=== PATIENT | male | born 1960 | race Caucasian/White ===

== ENCOUNTER 2025-03-13 13:28 | Outpatient (CLI) | payer BC, MEDICARE, SELFPAY ==
--- NOTE | ~2025-03-13 | MR_ITS ---
EXAMINATION: MR pelvis wo/w con DATE: 03/13/2025 14:29 INDICATION: Unilateral inguinal hernia TECHNIQUE: Magnetic resonance imaging (MRI) of the pelvis was performed without and with 18 mL Multihance intravenous contrast. Fullfield sequences of the pelvis included axial and coronal T2-weighted SS FSE, coronal T2-weighted SS FS FSE, coronal 2D FIESTA, axial T1-weighted FSPGR, axial dual-echo T1-weighted FSPGR and axial T1 weighted LAVA. Postcontrast sequences included a time course axial T1-weighted LAVA with full-field of view of the pelvis. COMPARISON: None. FINDINGS: Mild mucosal trabeculation of the bladder wall likely related to chronic outlet obstruction from the mildly enlarged prostate which measures 4.1 x 3.6 cm. Visualized portions of bowels are unremarkable. Very small fat-containing umbilical hernia. There is focal scarring slightly inferolateral to the um bilicus likely related to prior surgery. No free fluid in the pelvis. Moderate- sized right and large left fat-containing bilateral inguinal hernias. Small bilateral hydroceles. No pathologically enlarged pelvic or inguinal lymphadenopathy. Mild lumbar spondylosis. Normal bone marrow signal throughout. IMPRESSION: 1. Moderate-sized right and large left fat-containing inguinal hernias. 2. Small bilateral hydroceles. 3. Mild prostatomegaly with trabeculation of the mucosal surface of the bladder which could be due to secondary chronic outlet obstruction. Reviewed, dictated and finalized at location A.
== END 2025-03-13 13:29 | disposition home or self-care (01) ==
PROVIDERS: PCP Physician Assistant; Visit Provider Physician Assistant
DX: K40.90 Unilateral inguinal hernia, without obstruction or gangrene, not specified as recurrent (principal); N43.3 Hydrocele, unspecified; N40.0 Benign prostatic hyperplasia without lower urinary tract symptoms; N32.89 Other specified disorders of bladder
CPT/HCPCS: 72197; A9577

== ENCOUNTER 2025-05-27 07:47 | Outpatient (CLI) | payer BC, MEDICARE, SELFPAY ==
--- NOTE | 2025-05-27 08:00 | ECG_ITS ---
Test Date: 2025-05-27 08:05:35 Measurements Intervals [place] Rate: 78 P: 56 NM: 202 QRS: 30 QRSD: 108 T: 56 QT: 359 QTc: 409 Interpretive Statements SINUS RHYTHM BORDERLINE AV CONDUCTION DELAY INCOMPLETE RIGHT BUNDLE BRANCH BLOCK BASELINE ARTIFACT- I, II, III, AVR, AVL, AVF, V2 BORDERLINE ECG No previous ECG available for comparison Electronically Signed On 05-27-2025 08:10:59 BIKE MECHANIC by Freddy Wilson D.O.
[2025-05-27 08:32] LABS: Anion Gap 9 mmol/L (4-12); Blood Urea Nitrogen 17 mg/dL (9-20); Calcium 9.6 mg/dL (8.4-10.2); Carbon Dioxide 23 mmol/L (22-30); Chloride 101 mmol/L (98-107); Estimated Glomerular Filt Rate > 60; Glucose 165 mg/dL (65-110); Potassium 4.0 mmol/L (3.4-5.0); Sodium 133 mmol/L (137-145)
== END 2025-05-27 07:48 | disposition home or self-care (01) ==
LOC: ANHSURGERY 07:53
PROVIDERS: Anesthesiology; PCP Physician Assistant; Visit Provider Surgery
DX: Z01.818 Encounter for other preprocedural examination (principal); E11.9 Type 2 diabetes mellitus without complications; I10 Essential (primary) hypertension; K40.20 Bilateral inguinal hernia, without obstruction or gangrene, not specified as recurrent; I45.10 Unspecified right bundle-branch block
CPT/HCPCS: 36415; 80048; 86850; 86900; 86901; 93005

== ENCOUNTER 2025-05-30 02:15 | Day surgery (SDC) | payer BC, MEDICARE, SELFPAY ==
--- NOTE | 2025-05-23 13:40 | PC.NURSE ---
[facility] has started construction of its new state of the art ER which will open Spring 2026. With this, we anticipate parking may be a challenge for some our surgical patients and families. Parking spaces are limited but are available for all Surgical, obstetrics, and ER patients sharing this lot. If you arrive and find you are having a hard time finding a parking space, please note that we understand the challenges, please drive around the hospital and park near Hospital Entrance 1. When you enter this entrance, you can ask a volunteer to direct or take you back to the surgical waiting area to check in. We appreciate everyone?s understanding of these expected challenges while we build for your future. Report to the Outpatient Waiting Room, entrance under the green pavilion located off [address], at time _6 AM on date _05/30/25 . Planned Procedure Time: ____7:30 AM____.? Time changes happen often and if your time is changed the preop area will call you the afternoon before. - You and your visitor will be asked to self-screen and do not enter if you have any COVID symptoms. Please call surgeon if you need to reschedule. - A mask is optional within the hospital at this time. Patients may have clear liquids (water, carbonated beverages, clear teas, apple juice) until 3 hours prior to surgery( 4:30 AM) with a maximum of 20 ounces. - No food from midnight until time of surgery and no smoking, or chewing tobacco (or any form of nicotine). No chewing gum, candy or mints. Take only the following medications with a SIP of water on the morning of surgery: ___NONE DO NOT STOP ANY OF YOUR OTHER PRESCRIPTION MEDICATIONS PRIOR TO SURGERY EXCEPT THE FOLLOWING Hold all vitamins and supplements for 3 days per anesthesiologist. Medications to discontinue per physician NONE ____ Please no make-up, nail italian, hairspray, perfume, deodorant, or body powder the day of surgery.? No jewelry (including any body piercings) or valuables the day of surgery, leave them at home.? Please take a shower or bath the night before, or the morning of, surgery with an antibacterial soap.? Wear comfortable, loose fitting clothing.? Children are encouraged to wear pajamas. - Jewelry must be removed prior to entering the operating room.? Rings and piercings that are not removed may be cut off. - The hospital will not accept responsibility for valuables.? - Please leave all valuables, including medications, at home the day of surgery. If you are going home after surgery, a licensed truck driver salesperson must drive you home.? - NO public transportation without another adult if you receive anesthesia. - We recommend that an adult stay with you for 24 hours following discharge. - We also recommend that you do not drive, make important decision, drink alcoholic beverages, or take any drugs that were not prescribed by your health care provider for at least 24 hours after your discharge time. For Pediatric surgeries, we recommend two adults accompany the child home. Follow any additional instructions given to you from your surgeon. Telephone instructions given to __PATIENT AND SAFIA and asked if any additional questions and then verbalized understanding. Patient advised to call surgeon office or pre surgery nurse liaison [phone] if any additional questions.
[2025-05-23 14:00] VITALS: BMI 28.8
[2025-05-30] VITALS (10 sets, daily range): BP systolic 129–161; BP diastolic 62–88; PULSE 75–92; RESP 14–22; TEMP 36.6–36.7; O2SAT 93–100; BMI 30.4
[2025-05-30] MEDS: KETOROLAC 15 MG/ML VIAL (*BKC) IV PUSH ×2 (06:45→11:01)
[2025-05-30] MEDS: LACTATED RINGERS 1,000 ML 30 ML IV CONT ×3 (06:45→11:50)
[2025-05-30] MEDS: ACETAMINOPHEN 500 MG TABLET 1000 MG PO (06:45)
--- NOTE | 2025-05-30 07:13 | PM.IMHP2 ---
H&P: HPI History of Present Illness Date/Time: 05/30/25 07:13 Chief Complaint: Bilateral inguinal hernia Narrative: Mr. Kapoor presents to the office at the request of Dai Lobato PA-C for evaluation of groin pain. Patient had a Pelvis MRI which showed moderate-sized right and large left fat-containing inguinal hernias, small bilateral hydroceles, and mild prostatomegaly with trabeculation of the mucosal surface of the bladder which could be due to secondary chronic outlet obstruction. Patient reports noticing groin pain approximately 6 weeks ago. Patient states he is experiencing pain above left testicle that radiates into groin. Patient denies experiencing problems with voiding. Patient states he is experiencing constipation, but denies nausea and vomiting. Review of Systems Review of Systems: The remainder of the review of systems to include constitutional, HEENT, cardiovascular, respiratory, GI, , integumentary, musculoskeletal, endocrine, immunologic, hematologic, psychiatric, and neurologic are all negative except for which is mentioned above in the HPI. [facility] Past Medical History Medical History Hx of fracture of arm History of hypertension History of gastroesophageal reflux (GERD) Hx of diabetes insipidus Surgical History Surgical History Hx of knee surgery Hx of appendectomy Family History Family History Mother Diabetes mellitus Hypertension Heart disease Cancer Father Cancer Hypertension Sibling Cancer Heart disease Hypertension Grandparent Diabetes mellitus Hypertension Cancer Heart disease Social History Social History Years smoked: 10 Smoking status: Former smoker Tobacco type: cigarettes Additional smoking assessment comments: SMOKES -ONE PACK WILL LAST A WK Living arrangements: with family Spiritual care concerns: No Meds Home Medications and Allergies Home Medications ?Medication ?Instructions ?Recorded ?Confirmed ?Type atorvastatin 20 mg tablet (Lipitor) 20 mg PO DAILY 03/27/25 05/30/25 History glimepiride 1 mg tablet 1 mg PO QAM 03/27/25 05/30/25 History hydrochlorothiazide 25 mg tablet 25 mg PO DAILY 03/27/25 05/30/25 History lisinopril 30 mg tablet 30 mg PO DAILY 03/27/25 05/30/25 History metformin 1,000 mg tablet 1,000 mg PO BID 03/27/25 05/30/25 History omeprazole 20 mg capsule,delayed 20 mg PO DAILY 03/27/25 05/30/25 History release Allergies Allergy/AdvReac Type Severity Reaction Status Date / Time No Known Allergies Allergy Verified 05/30/25 07:11 Exam Const: General: comfortable and no acute distress HENMT: Ears: TM's normal bilaterally Face/Nose/Sinus: Normal nares present Mouth: Yes moist mucous membranes Eyes: General: appearance normal, both eyes and all related structures Sclera: sclerae normal Pupils: Equal, round and reactive pupils present EOM: EOMs intact bilaterally Neck: Neck: no JVD Resp: Effort & Inspection: normal respiratory effort Auscultation: clear to auscultation bilaterally Cardio: Rate: regular rate Rhythm: regular rhythm GI: Other: No ventral hernia. Larger RLQ scar form childhood appendectomy. : Other: Reducible bilateral inguinal hernia. Left larger than right non tender to palpation. No testicular masses. Skin: General skin exam: normal color and no rashes or lesions noted Neuro: General: gait normal Speech: normal speech Motor exam (neuro): 5/5 motor strength present throughout Sensory Exam: normal sensation Extrem: General: normal to inspection Psych: Mental Status: mental status grossly normal Affect: normal affect Assessment and Plan Assessment and plan (1) Bilateral inguinal hernia (BIH): Code(s): K40.20 - Bilateral inguinal hernia, without obstruction or gangrene, not specified as recurrent Status: Acute Assessment and Plan: I have reviewed office notes from Dai Lobato PA-C and imaging prior to patient being seen in office. I have recommended a laparoscopic bilateral inguinal hernia repair with mesh, Da Kaitlyn assisted, to be done under general anesthesia as an outpatient. Patient would like to proceed with surgery before the end of the year. The procedure was discussed in detail including the use of mesh, general description, and usual course of recovery. Risks of recurrence, infection, postop bleeding, prolonged postop pain, possible need to return to surgery were discussed as well. All questions were answered. Patient would like to proceed. Follow-up 2 weeks postoperatively.
--- NOTE | 2025-05-30 07:17 | WPDHPUPDATE1 ---
History and Physical Update Update Date/Time: 05/30/25 07:17 History and Physical has been reviewed, including an updated exam of the patient. There are NO changes in the patient's condition. Risks, benefits, and alternatives have been discussed and questions answered. Patient agrees to proceed with procedure.
--- NOTE | 2025-05-30 07:26 | P.PNAN_ITS ---
Anes - Initial Pre Proc Eval Procedure: Operation Date: 05/30/25 07:30 Proposed Procedures p Robotic Assisted Laparoscopic Bilateral Inguinal Hernia Repair with Mesh - Matthew Augustine MD Date/Time: 05/30/25 07:26 Surgeon: Matthew Augustine MD Pre Op Diagnosis: Reducible Asael Ing Hernia Patient Data Age: 65 Gender: M Height: 1.73 m Weight: 90.7 kg Last Vital Signs Temp 97.9 F 05/30/25 07:13 Pulse 92 05/30/25 07:13 BP 150/79 H 05/30/25 07:13 Pulse Ox 98 05/30/25 07:13 O2 Del Method Room Air 05/30/25 07:13 Allergies Allergy/AdvReac Type Severity Reaction Status Date / Time No Known Allergies Allergy Verified 05/30/25 07:11 Home Medications ?Medication ?Instructions ?Recorded ?Confirmed ?Type atorvastatin 20 mg tablet (Lipitor) 20 mg PO DAILY 05/30/25 History glimepiride 1 mg tablet 1 mg PO QAM 03/27/25 5 History hydrochlorothiazide 25 mg tablet 25 mg PO DAILY 05/30/25 History lisinopril 30 mg tablet 30 mg PO DAILY 03/27/2505/12 History metformin 1,000 mg tablet 1,000 mg PO BID 03/27/25 History omeprazole 20 mg capsule,delayed 20 mg PO DAILY 05/30/25 History release Laboratory Tests 05/30/25 06:52 POC Capillary Glucose 186 H mg/dl (65-105) Patient hx anesthesia problems: none Family hx anesthesia problems: none Results Review: All pre-operative results and documents have been reviewed as part of the pre- operative evaluation. [facility] Past Medical History Medical History Hx of fracture of arm History of hypertension History of gastroesophageal reflux (GERD) Hx of diabetes insipidus Surgical History Surgical History Hx of knee surgery Hx of appendectomy Family History Family History Mother Diabetes mellitus Hypertension Heart disease Cancer Father Cancer Hypertension Sibling Cancer Heart disease Hypertension Grandparent Diabetes mellitus Hypertension Cancer Heart disease Social History Social History Years smoked: 10 Smoking status: Former smoker Tobacco type: cigarettes Additional smoking assessment comments: SMOKES -ONE PACK WILL LAST A WK Living arrangements: with family Spiritual care concerns: No Anes - Eval Final PreProcedure Day of Procedure 05/30/25 07:26 Patient weight: obese Heart: regular rate and rhythm Lungs: clear to auscultation Airway: Mallampati scale class II Neurological: alert and oriented Last oral intake: >/= 8 hours ASA classification: III Emergent: no Anesthetic plan: proceed Anesthesia type and monitoring: general ETT and standard monitoring Results Review: All pre-operative results and documents have been reviewed as part of the pre- operative evaluation. Informed Consent: The patient's anesthetic plan and its attendant risks and benefits were discussed with the patient/family/POA. Questions were solicited and answers provided to the satisfaction of the patient/family/POA.
[2025-05-30] MEDS: ceFAZolin 2 GM in SODIUM CHLORIDE 0.9% IV 50 ML 100 ML IVPB (07:30)
[2025-05-30] MEDS: LIDO 1%/EPINEPHRINE 1:100,000 20 ML VIAL 30 ML INFILTRATE (08:21)
[2025-05-30] MEDS: oxyCODONE HCL (*CRX) 5 MG TAB IR PO (13:00)
--- NOTE | 2025-05-31 11:14 | W.PM.PROC2 ---
Procedure Note - Detailed Date of Procedure 05/30/25 Pre-op Diagnosis Bilateral inguinal hernias. Post-op Diagnosis Same ( Bilateral indirect inguinal hernias with large bilateral cord lipomas.) Procedure Performed Robotic assisted laparoscopic bilateral inguinal hernia repair with Bard 3D mid weight mesh. Surgeon Matthew Augustine MD Conservation Technician Mando CONNOR Anesthesia General Indications Patient is a 65-year-old gentleman who presented with complaints of bilateral groin pain. He also had bulges in the groins. CT scan abdomen pelvis was performed showing a bilateral inguinal hernia with fatty tissue within the inguinal hernia canal. Left side was larger than right side. He presents now for a robotic assisted laparoscopic bilateral inguinal hernia repair with mesh. Findings Upon entering the abdomen laparoscopically the patient had large amounts of omentum, which were adherent to the anterior abdominal wall in the lower abdomen. The patient had a prior open appendectomy many years ago. These adhesions were due to the open appendectomy. Once I had performed adhesiolysis of all the omentum off of the anterior abdominal wall I was able to see the patient had bilateral indirect inguinal hernias. After dissecting had out the hernias he was found to have large bilateral cord lipomas. Both of these cord lipomas resected removed. The 2 hernias were repaired laparoscopically with robotic assistance with Bard 3D mid weight mesh. Two extra-large pieces of mesh measuring [id number] or used. The overlapped in the midline over the pubic symphysis in the space of Retzius. Description of Procedure After informed consent was obtained the patient was brought to the operating room was placed supine position and general endotracheal anesthesia was administered. The abdomen was then prepped and draped in usual sterile fashion. A time-out was then performed correctly identifying the patient as well as procedure to be performed. No site marking was made as it was a bilateral procedure. He was given perioperative IV antibiotics. I 1st started by entering the abdomen left upper quadrant utilizing a 5mm Optiview port. Once inside the abdomen insufflated to adequate pneumoperitoneum of 15mmHg of CO2. I could then see that he had copious amounts of omentum which were adherent to the anterior abdominal wall in the lower abdomen. The patient had a prior open appendectomy which likely caused the adhesions. I then placed a left lateral abdominal wall robotic port under direct visualization. Then working through this port with a laparoscopic shana I was then able to take down and lysed some of the omental adhesions around the periumbilical region so that I could place the rest of my ports. This is done without difficulty. Once all the robotic trocar ports were in place I then brought the xiao qu wu youi robot to the bedside and docked it with the arms attaching to the robotic ports. Robotic instruments were then advanced into the abdomen under direct visualization and then ice scrubbed out the procedure sent down at the robotic console to perform the dissection. I then further performed adhesiolysis of omentum off of the lower abdominal wall. Once all these adhesions were taken down I could easily see the bilateral groin regions and could easily see the patient had bilateral indirect inguinal hernias. I then proceeded to make a preperitoneal flap across the lower abdomen starting on the right side anterior medial to the right anterior superior iliac spine extended across the whole lower abdomen to the left anterior suprailiac spine. Dissection was then carried down in the preperitoneal plane releasing the bladder from the rectus and the bilateral pubic tubercles and pubic symphysis. I dissected down into the space of Retzius for couple cm utilizing robotic hook cautery. I then dissected the peritoneum out of the left inguinal canal taking care to preserve without injury the vas deferens and testicular vessels. I then dissected out a very large cord lipoma out of the left inguinal canal. It was amputated with electrocautery and left in the abdomen to be removed later on. I then further dissected the peritoneal flap up onto the psoas muscle on the left side. There was a small amount of fatty tissue within the femoral canal which was dissected out as well. I then turned my attention towards the right side and again the indirect inguinal hernia sac was dissected out of the internal ring in the right inguinal canal utilizing hook electrocautery. The vas deferens and testicular vessels on this side were preserved as well without injury. Another large right cord lipoma was then dissected out of the inguinal canal and again it was resected utilized electrocautery and placed with the other large cord lipoma to be removed at the end of procedure. On the right side I continued dissection of the peritoneum off of the psoas muscle and identify where the vas deferens and testicular vessels diverged. The femoral canal was identified a small amount of fatty tissue was dissected of this area as well. Once I felt that I had enough of the peritoneum bilaterally dissected out proximal to the psoas muscle so that the mesh would not curl up with closure of the peritoneum I then chose my 2 pieces of mesh. I chose 2 pieces of Bard 3D mid weight mesh oriented for the right and left side of the pelvis each measuring [id number]. Both pieces of mesh were then placed to the bedside fitter's assistant port site and placed into the dissected space is with each side oriented for the left and right sides. The mesh was then secured with 2-0 Vicryl sutures at the pubic tubercle bilaterally and then to the muscle anterior medial to the bilateral anterior superior iliac spine. Additional suture was then placed on each side to further approximate the mesh to the muscle at the direct space. Both meshes overlapped in the midline over the pubic symphysis and down into the space of Retzius. The lower edge the mass extended into the space of Retzius by couple cm bilaterally. The 2 pieces of mesh cover the home myopectineal orifice bilaterally with wide overlap and no tension. I then proceeded to close the peritoneal flap. This was done by placing a running 2-0 absorbable V lock suture to reapproximate the edges of the peritoneum. Once this was done all the mesh was covered with peritoneum and the intra-abdominal viscera was excluded from touching the mesh. I then proceeded to remove all the robotic instruments from the abdomen and the robot was undocked from the patient's bedside. I then scrubbed back into the procedure and proceeded to close the periumbilical trocar port fascial defect and the left upper quadrant trocar port fascial defect with a 0 Vicryl suture at the fascial level with the assistance of a suture Passer. The abdomen was then allowed to decompress and the port sites were removed. The port sites were then irrigated with sterile saline solution and then closed at the skin level utilizing a running subcuticular 4-0 Monocryl suture. Incisions were then cleaned and then skin glue was used for final dressing. A scrotal support was placed at the end the procedure. The patient tolerated the procedure well no complications. All sponges, needles, and instrument counts were correct at the end procedure. EBL was _20__cc. The patient was awakened and taken to recovery in stable and satisfactory condition. Implants Bard 3D mid weight mesh extra-large [id number] each side bilateral groins. Estimated Blood Loss 20 Drains No Packing No Pathology None sent Complications No immediate complications Condition Stable Disposition PACU [facility] Billing Surgery - Charge Forward: Surgery Billing
== END 2025-05-30 13:59 | disposition home or self-care (01) ==
PROVIDERS: PCP Physician Assistant; Visit Provider Surgery
PROC: 8E0Y4CZ Robotic Assisted Procedure of Lower Extremity, Percutaneous Endoscopic Approach (ICD-10-PCS; CPT 49650; principal; 2025-05-30 07:30)
DX: K40.20 Bilateral inguinal hernia, without obstruction or gangrene, not specified as recurrent (principal); K66.0 Peritoneal adhesions (postprocedural) (postinfection); I10 Essential (primary) hypertension; K21.9 Gastro-esophageal reflux disease without esophagitis; E23.2 Diabetes insipidus; E66.9 Obesity, unspecified; Z68.30 Body mass index [BMI] 30.0-30.9, adult; Z79.84 Long term (current) use of oral hypoglycemic drugs; Z98.890 Other specified postprocedural states; Z87.891 Personal history of nicotine dependence; Z80.9 Family history of malignant neoplasm, unspecified; Z82.49 Family history of ischemic heart disease and other diseases of the circulatory system
CPT/HCPCS: 49650; S2900; 82948; J0690; A9270; C1781; J1100; J1171; J1885; J2003; J2004; J2250; J2405; J2704; J3010; J7030; J7120